=== PATIENT | female | born 1990 | race Caucasian/White ===

== ENCOUNTER → 2020-04-25 | Day surgery (SDC) | payer OTHER ==
[~2020-04-25] VITALS: Ht 165.1 cm; Wt 95.6 kg
[~2020-04-25] MED LIST: AMPICILLIN SOD/SULBACTAM SOD 3 GM in D5W MINI-BAG PLUS 100 ML IV ONE; BUPR1SUB35; DULO1CAP6; GABA-845; HYDR1CAP25; LR 1,000 ML IV ONE; dexameTHASONE 4 MG/ML 1ML VIAL (J1100 PER 1MG) IV ONE
[2020-04-25 10:42] VITALS: BP 159/86
== END | disposition home or self-care (01) ==
LOC: M SDC 10:00
PROVIDERS: ATTEND Dentist
DX: K02.9 Dental caries, unspecified (principal); Z53.29 Procedure and treatment not carried out because of patient's decision for other reasons